=== PATIENT | male | born 1975 | race African-American/Black ===

== ENCOUNTER 2020-09-04 09:33 | Emergency (ER) | payer OTHER ==
[~2020-09-04] VITALS: Ht 188 cm; Wt 95.3 kg
--- NOTE | 2020-09-04 09:49 | NUR ---
ED Nurse Note: Pt ambulated to ED from home d/t R knee swelling with pain that has been going on for 3 days. Pt is AOx4, calm and cooperative to care, per pt, he fell and landed on his R knee, denies head injury, VSS.
--- NOTE | 2020-09-04 09:53 | Emergency Room Report ---
History of Present Illness General Chief Complaint: Lower Extremity Injury Source: Patient Present Illness HPI 45-year-old male presents with right knee pain started 08/31/2020, patient fell on his right knee, no dislocation, mechanical fall, endorses sharp pain aggravated with movement alleviated rest severity is moderate intermittent patient presents for evaluation and treatment Allergies: Coded Allergies: No Known Allergies (Unverified , 09/04/20) COVID-19 Screening Contact w/high risk pt: No Experienced COVID-19 symptoms?: No COVID-19 Testing performed [employer]: No Patient History Past Medical History: see triage record Social History: Reports: smoking Reviewed Nursing Documentation: PMH: Agreed; PSxH: Agreed Nursing Documentation-PMH Past Medical History: No History, Except For Hx Hypertension: Yes Review of Systems All Other Systems: negative except mentioned in HPI Physical Exam Vital Signs Date Time Temp Pulse Resp B/P (MAP) Pulse Ox O2 Delivery O2 Flow Rate FiO2 09/04/20 09:43 98.2 80 18 160/82 (108) 95 Room Air General Appearance: well appearing, no apparent distress Head: normocephalic, atraumatic ENT: hearing grossly normal, normal voice Neck: full range of motion, supple Respiratory: no respiratory distress, speaking full sentences Musculoskeletal: other - Right knee: Anterior posterior drawer negative, valgus varus negative, range of motion intact Neurologic: alert, normal gait Psychiatric: mood/affect normal Skin: no rash Medical Decision Making Diagnostic Impression: Primary Impression: Contusion of knee, right Qualified Codes: S80.01XA - Contusion of right knee, initial encounter ER Course 45-year-old male presents with right knee pain most likely knee contusion will evaluate for fracture X-ray negative Possible lucency on XR patient placed in knee immobilizer and crutches, patient to follow-up for repeat films with ortho work note provided patient counseled to follow-up with Ortho disposition home with return precautions pain control with ibuprofen Other X-Ray Diagnostic Results Other X-Ray Diagnostic Results : X-Ray ordered: Right knee # of Views/Limited Vs Complete: 2 View Indication: Pain EP Interpretation: Yes Interpretation: no dislocation, no soft tissue swelling, no fractures Impression: No acute disease Electronically Signed by: Roc Maxwell MD Last Vital Signs Date Time Temp Pulse Resp B/P (MAP) Pulse Ox O2 Delivery O2 Flow Rate FiO2 09/04/20 09:43 98.2 80 18 160/82 (108) 95 Room Air Disposition: HOME, SELF-CARE Condition: Stable Scripts Ibuprofen* (MOTRIN*) 600 Mg Tablet 600 MG ORAL Q8H PRN for FOR PAIN, #30 TAB 0 Refills Prov: Roc Maxwell MD 09/04/20 Referrals: [facility] Departure Forms: Return to Work Return to Work Date: Sep 11, 2020 Patient Instructions: Knee Pain, [id number], Knee Sprain, [id number] Additional Instructions: The patient was provided with discharge instructions, notified to follow-up with a primary care doctor and or specialist in the next 24-48 hours, and to return to the ED if they have worsening of their symptoms. Please note that this report is being documented using DRAGON technology. This can lead to erroneous entry secondary to incorrect interpretation by the dictating instrument. Roc Maxwell MD Sep 04, 2020 09:53
[2020-09-04] MEDS ORDERED: IBUPROFEN600 M1 ORAL (09:56)
[2020-09-04] MEDS ORDERED: Acetaminophen 500mg (ES) tab ORAL ONE (10:00)
[2020-09-04 11:07] VITALS: BP 158/80
--- NOTE | 2020-09-04 11:07 | NUR ---
ER DISCHARGE NOTE: Patient is cleared to be discharged per ERMD, pt is aox4, on room air, with stable vital signs. pt was given dc and prescription instructions, pt was able to verbalize understanding, pt id band removed. pt is able to ambulate with steady gait. pt took all belongings.
--- NOTE | 2020-09-04 11:28 | Diagnostic Imaging Report ---
Indication: Right knee pain Technique: 3 views of the right knee Comparison: None Findings: There is a suprapatellar effusion. On the oblique view, there is a lucency involving the posterolateral tibial plateau, not definitely evident on other views, although there is also a question of a cortical break of the posterior proximal tibia on the lateral view. There is a joint effusion. The joint spaces are preserved. No dislocation. Impression: Lucency involving the posterolateral tibial plateau seen only on a single view. Of uncertain significance, but could represent a nondisplaced fracture. Small joint effusion Findings discussed by phone with Dr. Maxwell in the emergency room at the time of interpretation
== END 2020-09-04 11:07 | disposition home or self-care (01) ==
LOC: EMR 10:27
DX: S80.01XA Contusion of right knee, initial encounter (principal); W19.XXXA Unspecified fall, initial encounter; Y92.9 Unspecified place or not applicable; I10 Essential (primary) hypertension; M25.461 Effusion, right knee
CPT/HCPCS: 73562; Z7502; 99283